=== PATIENT | male | born 1940 | race Two or more races ===

== ENCOUNTER 2016-10-24 21:10 | Inpatient (IN) | payer MEDICARE, MEDICAID ==
[2016-10-24] VITALS: BP 116/71
[~2016-10-24] VITALS: Ht 165.1 cm; Wt 78.9 kg
[~2016-10-24 21:10] MED LIST: ALLA266C2 TP; AMLO2.5T PO; HYDR-3326 PO; LEVO750T21 PO; LOSA25TA13 PO; PANT40VI PO
--- NOTE | 2016-10-24 21:20 | NUR ---
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 PT AOX4 RR EVEN AND UNLABORED. NO SOB NOTED. NAD NOTED. NO NVD AT THIS TIME. PT GOWNED AND PLACED ON MONITOR WAITING FOR MD FRITZ. PT NOTED WITH RIGHT SIDE WEAKNESS AND SLIGHT FACIAL DROOP. DR. HEBERT MADE AWARE.
--- NOTE | 2016-10-24 22:00 | NUR ---
DR. HEBERT AT BEDSIDE FOR EVAL.
[2016-10-24 22:08] LABS: BASOPHILS % (AUTO) 0.4 % (0.0-2.0); EOSINOPHILS # (AUTO) 0.2 /CMM (0.0-0.7); EOSINOPHILS % (AUTO) 2.1 % (0.0-6.0); HEMATOCRIT 49 % (39-51); HEMOGLOBIN 16.6 g/dL (13.5-17.5); LYMPHOCYTES # (AUTO) 1.5 /CMM (0.8-4.8); LYMPHOCYTES % (AUTO) 20.6 % (20.0-44.0); MEAN CORPUSCULAR HEMOGLOBIN 30 PG (26.0-33.0); MEAN CORPUSCULAR HGB CONC 34 g/dl (31.0-36.0); MEAN CORPUSCULAR VOLUME 90 fL (80-96); MONOCYTES # (AUTO) 0.8 /CMM (0.1-1.30); NEUTROPHILS # (AUTO) 4.7 /CMM (1.8-8.9); NEUTROPHILS % (AUTO) 65.9 % (43.0-81.0); PLATELET COUNT (AUTO) 227 /CMM (150-450); RDW COEFFICIENT OF VARIATION 13.9 (11.5-15.0); RED BLOOD CELL COUNT(AUTO) 5.46 MIL/uL (4.5-6.0); WHITE BLOOD COUNT (AUTO) 7.2 K/uL (4.3-11.0)
--- NOTE | 2016-10-24 22:19 | NUR ---
PT TO CT.
[2016-10-24 22:27] LABS: ALANINE AMINOTRANSFERASE 28 U/L (12-78); ALBUMIN 3.5 g/dL (3.4-5.0); ALKALINE PHOSPHATASE 70 U/L (46-116); ASPARTATE AMINOTRANSFERASE 16 U/L (15-37); BILIRUBIN,TOTAL 0.3 mg/dL (0.2-1.0); CALCIUM, SERUM 8.6 mg/dL (8.5-10.1); CARBON DIOXIDE 25 mmol/L (21-32); CHLORIDE 107 mmol/L (98-107); CREATININE 0.8 mg/dL (0.6-1.3); GLUCOSE 149 mg/dL (74-106); POTASSIUM 3.9 mmol/L (3.5-5.1); SODIUM SERUM 141 mmol/L (136-145); TOTAL PROTEIN, SERUM 7.4 g/dL (6.4-8.2); TROPONIN I < 0.017 ng/mL (0.00-0.056); UREA NITROGEN, BLOOD 19 mg/dL (7-18)
--- NOTE | 2016-10-24 22:29 | NUR ---
PT RETURNED FROM CT.
--- NOTE | 2016-10-24 22:34 | NUR ---
DR. ZHU AT BEDSIDE FOR EVAL.
[2016-10-24 22:38] LABS: INR 1.04 (0.87-1.13); PROTHROMBIN TIME 11.2 SECS (9.5-12.7)
[2016-10-24] MEDS ORDERED: LIDOCAINE 2% JEL UROJET 10 ML MM ONE ×2 (22:52→23:00)
--- NOTE | 2016-10-24 23:02 | NUR ---
UNABLE TO COLLECT URINE VIA IN AND OUT. INFORMED DR. ZHU.
--- NOTE | 2016-10-24 23:06 | NUR ---
PAGED DR REDD ROD.
--- NOTE | 2016-10-24 23:06 | NUR ---
DR. ZHU AT BEDSIDE SPEAKING TO FAMILY AND PT REGARDING POC
--- NOTE | 2016-10-24 23:08 | NUR ---
PT ASSIGNED TO [facility] [id number]
--- NOTE | 2016-10-24 23:10 | NUR ---
DR. ZHU SPEAKING TO DR. VIOLA RAINEY REGARDING ADMISSION.
--- NOTE | 2016-10-24 23:11 | NUR ---
PER , PT DOES NOT TAKE ANY MEDICATION.
--- NOTE | 2016-10-24 23:15 | NUR ---
REPORT GIVEN TO BOILERMAKER WELDER FOR BARRY.
--- NOTE | 2016-10-24 23:22 | NUR ---
DR RAINEY AT BEDSIDE FOR EVAL.
[2016-10-24 23:28] LABS: MAGNESIUM 2.4 mg/dL (1.8-2.4)
[2016-10-24] MEDS ORDERED: MAG HYDROX/AL HYDROX/SIMETH 30 ML UDC PO PRN (23:30)
[2016-10-24] MEDS ORDERED: ENOXAPARIN SODIUM 40 MG/0.4 ML DISP.SYRIN SQ SCH (23:30)
[2016-10-24] MEDS ORDERED: ACETAMINOPHEN 325 MG TABLET PO PRN (23:30)
[2016-10-24] MEDS ORDERED: HYDROCODONE/APAP 5/325MG 1 EACH TABLET PO PRN ×2 (23:30)
[2016-10-24 23:42] LABS: THYROID STIMULATING HORMONE 2.486 uIU/mL (0.358-3.74)
[2016-10-24] MEDS ORDERED: ENOXAPARIN SODIUM 40 MG/0.4 ML DISP.SYRIN SQ ONE (23:48)
[2016-10-25 00:37] VITALS: BP 116/71
[2016-10-25 04:00] VITALS: BP 134/86
[2016-10-25 06:44] LABS: BASOPHILS % (AUTO) 0.3 % (0.0-2.0); EOSINOPHILS # (AUTO) 0.1 /CMM (0.0-0.7); EOSINOPHILS % (AUTO) 1.7 % (0.0-6.0); HEMATOCRIT 51 % (39-51); LYMPHOCYTES # (AUTO) 1.5 /CMM (0.8-4.8); MEAN CORPUSCULAR HEMOGLOBIN 31 PG (26.0-33.0); MEAN CORPUSCULAR HGB CONC 34 g/dl (31.0-36.0); MEAN CORPUSCULAR VOLUME 91 fL (80-96); MONOCYTES # (AUTO) 0.8 /CMM (0.1-1.30); NEUTROPHILS # (AUTO) 5.9 /CMM (1.8-8.9); PLATELET COUNT (AUTO) 229 /CMM (150-450); RDW COEFFICIENT OF VARIATION 13.8 (11.5-15.0); RED BLOOD CELL COUNT(AUTO) 5.56 MIL/uL (4.5-6.0); WHITE BLOOD COUNT (AUTO) 8.3 K/uL (4.3-11.0)
[2016-10-25 07:01] LABS: THYROID STIMULATING HORMONE 1.986 uIU/mL (0.358-3.74)
[2016-10-25 07:09] LABS: CALCIUM, SERUM 8.3 mg/dL (8.5-10.1); CREATININE 0.8 mg/dL (0.6-1.3); MAGNESIUM 2.3 mg/dL (1.8-2.4); PHOSPHORUS 2.4 mg/dL (2.5-4.9); POTASSIUM 3.9 mmol/L (3.5-5.1)
[2016-10-25 07:10] VITALS: BP 138/89
[2016-10-25] MEDS ORDERED: BLOOD SUGAR DIAGNOSTIC 1 EACH STRIP IN SCH ×2 (07:30)
--- NOTE | 2016-10-25 07:47 | NUR ---
RN AM NOTES PATIENT RECEIVED IN BED AWAKE, ALERT AND ORIENTED X3, WITH RIGHT SIDED WEAKNESS IS CONSISTENT WITH CURRENT MEDICAL CONDITION. USING URINAL, ON BEDREST, PT TO EVALUATE TODAY. LIVES AT HOME WITH FAMILY, ADMITTED TO HOSPITAL AFTER 4:30 PM BECAUSE HE REFUSED TO GO [facility], PER . CURRENTLY RESTING SAFELY IN BED. WILL CONTINUE TO MONITOR
[2016-10-25] MEDS ORDERED: LOSARTAN POTASSIUM 25 MG TABLET PO SCH (09:00)
[2016-10-25] MEDS: AMLODIPINE BESYLATE 2.5 MG TABLET PO SCH (09:24)
[2016-10-25] MEDS: PANTOPRAZOLE 40 MG TABLET.DR PO SCH (09:24)
[2016-10-25] MEDS: DOCUSATE SODIUM 100 MG CAPSULE PO SCH (09:24)
[2016-10-25] MEDS: ASPIRIN EC 325 MG TABLET.DR PO SCH (09:25)
--- NOTE | 2016-10-25 15:21 | NUR ---
MRI WILL BE DONE AT 7.00PM,NURSE ELDER IS AWARE, PLEASE HAVE THE MRI CHECKLIST READY.
--- NOTE | 2016-10-25 15:57 | NUR ---
TRAV OBTAINED. MRI PATIENT QUESTIONNAIRE DISCUSSED AND SIGNED. PICKUP FOR PROCEDURE 7PM.
[2016-10-25 16:00] VITALS: BP 164/97
[2016-10-25] MEDS ORDERED: K PHOS NEUTRAL 250 MG TABLET PO ONE (16:00)
--- NOTE | 2016-10-25 17:30 | NUR ---
TOOK BLOOD SUGAR AT PATIENT'S REQUEST. EXPLAINED MD DISCONTINUED ACCUCHECK, BUT PATIENT STILL WANTED IT, RECEIVED ERROR, WANTED TO REPEAT TEST, BUT PATIENT REFUSED. ASKED 3X, EXPLAINED WHAT AN ERROR COULD MEAN, BUT PATIENT SAID "IT'S OKAY, I DON'T NEED YOU TAKE IT ANYMORE." WILL CONTINUE TO MONITOR.
--- NOTE | 2016-10-25 18:22 | NUR ---
RN PM NOTES PATIENT RESTING SAFELY IN BED, WAITING FOR MRI PROCEDURE. NO SOB, PAIN OR DISTRESS NOTED. NO C/O PAIN OR FACIAL GRIMACING. TOLERATED MEDS WELL. WILL ENDORSE TO NEXT SHIFT.
--- NOTE | 2016-10-25 19:00 | NUR ---
MS JOSÉ MIGUEL INITIAL NOTES SEEN PT MED CARE MANAGER BY RUSTIC FENCE BUILDER FOR MRI OF THE BRAIN. PT DENIES ANY PAIN OR ANY DISCOMFORT. NOT IN ANY ACUTE DISTRESS NOTED.
--- NOTE | 2016-10-25 19:13 | NUR ---
Spoke with patient with a tool and die maker apprentice at the bedside. He lives at home with his and two sons.Patient reports he is ambulatory and independent with adl's. Has no DME or homehealth reported. Patient plan to return home upon discharge. Addendum: 10/25/16 at 1914 by RUFINA BELTRAN RN Amended: Links added.
--- NOTE | 2016-10-25 20:00 | NUR ---
RN L AND D./NOTES PT BACK TO HIS ROOM WITHOUT ANY ACUTE DISTRESS NOTED. NO SIGNS OF ANY FACIAL DROOP NOTED. ABLE TO AMBULATE WITHOUT ANY DISCOMFORT. FAMILY AT THE BEDSIDE . WILL CONTINUE TO MONITOR. PLACE CALL LIGHT AT REACH.
[2016-10-25 20:26] VITALS: BP 137/84
[2016-10-25] MEDS ORDERED: ENOXAPARIN SODIUM 40 MG/0.4 ML DISP.SYRIN SQ SCH (21:00)
[2016-10-25] MEDS ORDERED: ATORVASTATIN 40 MG TABLET PO SCH ×2 (22:00)
[2016-10-26 07:01] LABS: CALCIUM, SERUM 8.7 mg/dL (8.5-10.1); CREATININE 0.9 mg/dL (0.6-1.3); PHOSPHORUS 3.2 mg/dL (2.5-4.9); POTASSIUM 3.8 mmol/L (3.5-5.1)
[2016-10-26 07:16] LABS: *RAPID PLASMA REAGIN QUAL Non Reactive (Non Reactive)
--- NOTE | 2016-10-26 07:30 | NUR ---
RN AM NOTES PATIENT RECEIVED AWAKE IN BED, ALERT AND ORIENTED X 3. WILL CONTINUE TO REVIEW STROKE WARNING SIGNS AND CONTINUE WITH STROKE EDUCATION. REVIEWED MEDICATIONS WITH PATIENT. NO C/O PAIN, DISTRESS OR SOB. WILL CONTINUE TO MONITOR.
--- NOTE | 2016-10-26 07:32 | NUR ---
INSTRUMENTATION AND CONTROLS TECHNICIAN CLOSING NOTES PT AWAKE AND ALERT WATCHING TV AT THIS TIME, DENIES ANY PAIN OR ANY DISCOMFORT. STABLE ERICKSON THE NIGHT AND SLEPT WELL. DUE MEDS GIVEN AND ALL NEEDS MET. KEPT HIM COMFORTABLE AT ALL TIMES. ENDORSE TO AM NURSE FOR CONTINUE OF CARE.
[2016-10-26] MEDS: ASPIRIN EC 325 MG TABLET.DR PO SCH (07:59)
[2016-10-26] MEDS: PANTOPRAZOLE 40 MG TABLET.DR PO SCH (07:59)
[2016-10-26 08:00] VITALS: BP 150/97
[2016-10-26] MEDS: AMLODIPINE BESYLATE 2.5 MG TABLET PO SCH (08:01)
[2016-10-26] MEDS ORDERED: LOSARTAN POTASSIUM 25 MG TABLET PO SCH (09:00)
[2016-10-26 09:01] VITALS: BP 150/97
[2016-10-26] MEDS: DOCUSATE SODIUM 100 MG CAPSULE PO SCH (09:02)
[2016-10-26] MEDS ORDERED: FLU VACC QS 2016-17(36MOS+)/PF 0.5 ML DISP.SYRIN IM ONE (12:00)
[2016-10-26] MEDS ORDERED: PNEUMOCOCCAL 23-VAL P-SAC VAC 0.5 ML VIAL SQ ONE (12:00)
--- NOTE | 2016-10-26 13:04 | NUR ---
CALLED CHARMAINE GARG AT [phone] TO ARRANGE PT'S PICKUP. WAITING FOR RESPONSE.
--- NOTE | 2016-10-26 13:38 | NUR ---
NO NEED FOR INFLUENZA AND PNEUMONIA VACCINES, PATIENT ALREADY VACCINATED. AWAITING PICKUP BY [facility].
--- NOTE | 2016-10-26 14:09 | NUR ---
DOCK HAND NOTES PATIENT LEFT HOSPITAL IN STABLE CONDITION, IN PRIVATE CAR ACCOMPANIED BY FAMILY MEMBERS AND HOSPITAL STAFF MEMBER. NO COMPLAINTS OF PAIN, SOB OR DISTRESS. LEFT WITH PERSONAL BELONGINGS AND DISCHARGE PAPERWORK, INCLUDING RX. PATIENT LEFT HOSPITAL SAFELY.
== END 2016-10-26 14:09 | disposition home or self-care (01) | DRG 65 ==
LOC: ER 21:12 → TELE 23:30 → MED 10-25 09:02
PROVIDERS: ADMIT Family Medicine; ATTEND Family Medicine
DX: I63.9 Cerebral infarction, unspecified (principal); G81.94 Hemiplegia, unspecified affecting left nondominant side; E78.5 Hyperlipidemia, unspecified; I10 Essential (primary) hypertension; Z85.038 Personal history of other malignant neoplasm of large intestine; E11.9 Type 2 diabetes mellitus without complications
CPT/HCPCS: 36415; 70450-TC; 70551-TC; 71010-TC; 80048-TC; 80061-TC; 80076-TC; 82306; 82378; 82962-TC; 83735-TC; 84100-TC; 84439-TC; 84443-TC; 84484-TC; 85025-TC; 85652-TC; 85730-TC; 86592; 87081-TC; 92611-TC; 93307-TC; 93880-TC; 97001-TC; A4606; J1650; J3490; Z7610

== ENCOUNTER 2016-10-27 19:41 | Emergency (ER) | payer MEDICARE, MEDICAID ==
[~2016-10-27] VITALS: Ht 165.1 cm; Wt 78.9 kg
--- NOTE | 2016-10-27 19:55 | NUR ---
PT BIB FAMILY C/O WEAKNESS, DIZZINESS, AND FEELING TIRED TODAY. RESP EVEN UNLABORED. SKIN WARM NONDIAPHORETIC. NAD NOTED. NO NEURO DEFICITS NOTED. AMBULATORY WITH STEADY GAIT. IN ER BED 09 ON MONITOR.
[2016-10-27] MEDS ORDERED: IV NS 0.9% 1,000 ML BAG IV ONE (20:00)
[2016-10-27] MEDS ORDERED: IV NS 0.9% 1,000 ML ONE (20:02)
[2016-10-27] MEDS ORDERED: IV SET PRIMARY 1 EA INFUS.SET MC ONE (20:02)
--- NOTE | 2016-10-27 20:14 | NUR ---
iv established and labs drawn from line
[2016-10-27 20:17] LABS: BASOPHILS % (AUTO) 0.5 % (0.0-2.0); EOSINOPHILS # (AUTO) 0.2 /CMM (0.0-0.7); EOSINOPHILS % (AUTO) 2.1 % (0.0-6.0); HEMATOCRIT 50 % (39-51); HEMOGLOBIN 16.9 g/dL (13.5-17.5); LYMPHOCYTES # (AUTO) 1.5 /CMM (0.8-4.8); LYMPHOCYTES % (AUTO) 18.2 % (20.0-44.0); MEAN CORPUSCULAR HEMOGLOBIN 30 PG (26.0-33.0); MEAN CORPUSCULAR HGB CONC 34 g/dl (31.0-36.0); MEAN CORPUSCULAR VOLUME 90 fL (80-96); MONOCYTES # (AUTO) 0.7 /CMM (0.1-1.30); MONOCYTES % (AUTO) 8.9 % (2.0-12.0); NEUTROPHILS # (AUTO) 5.7 /CMM (1.8-8.9); NEUTROPHILS % (AUTO) 70.3 % (43.0-81.0); PLATELET COUNT (AUTO) 237 /CMM (150-450); RDW COEFFICIENT OF VARIATION 13.3 (11.5-15.0); RED BLOOD CELL COUNT(AUTO) 5.55 MIL/uL (4.5-6.0); WHITE BLOOD COUNT (AUTO) 8.1 K/uL (4.3-11.0)
[2016-10-27 20:24] LABS: CALCIUM, SERUM 8.3 mg/dL (8.5-10.1); CARBON DIOXIDE 26 mmol/L (21-32); CHLORIDE 106 mmol/L (98-107); GLUCOSE 141 mg/dL (74-106); POTASSIUM 4.7 mmol/L (3.5-5.1); SODIUM SERUM 137 mmol/L (136-145); UREA NITROGEN, BLOOD 25 mg/dL (7-18)
[2016-10-27 20:28] LABS: INR 1.05 (0.87-1.13); PROTHROMBIN TIME 10.9 SECS (9.5-12.7)
[2016-10-27 20:30] LABS: ALANINE AMINOTRANSFERASE 34 U/L (12-78); ALBUMIN 3.5 g/dL (3.4-5.0); ALKALINE PHOSPHATASE 89 U/L (46-116); ASPARTATE AMINOTRANSFERASE 36 U/L (15-37); BILIRUBIN,TOTAL 0.4 mg/dL (0.2-1.0); TOTAL PROTEIN, SERUM 7.6 g/dL (6.4-8.2)
[2016-10-27 20:32] LABS: TROPONIN I < 0.017 ng/mL (0.00-0.056)
[2016-10-27 22:14] VITALS: BP 134/71
--- NOTE | 2016-10-27 22:16 | NUR ---
Patient discharged to home in stable condition. Written and verbal after care instructions given. Patient verbalizes understanding of instruction. IV removed. Catheter intact and site benign. Pressure and 4x4 applied to site. No bleeding noted. AMBULATORY WITH STEADY GAIT.
== END 2016-10-27 22:16 | disposition home or self-care (01) ==
LOC: ER 19:44
DX: I63.9 Cerebral infarction, unspecified (principal); R41.82 Altered mental status, unspecified; I10 Essential (primary) hypertension; Z85.038 Personal history of other malignant neoplasm of large intestine
CPT/HCPCS: 36415; 70450-TC; 80048-TC; 80076-TC; 84484-TC; 85025-TC; 85730-TC; A4606; J7030; Z7610